=== PATIENT | male | born 2000 | race Caucasian/White ===

== ENCOUNTER 2023-10-27 10:50 | Emergency (ER) | payer BC ==
[~2023-10-27] VITALS: Ht 177.8 cm; Wt 90.7 kg
[2023-10-27 10:56] VITALS: BP 139/82; PULSE 92; RESP 18; TEMP 98.9; O2SAT 98
[2023-10-27] MEDS ORDERED: KETOROLAC 30 MG/ML VIAL IVP ONE (11:45)
[2023-10-27] MEDS ORDERED: DICYCLOMINE HCL LIQUID 10 MG/5 ML UDC PO ONE (11:45)
[2023-10-27] MEDS ORDERED: ONDANSETRON 4 MG/2 ML VIAL IVP ONE (11:45)
[2023-10-27] MEDS ORDERED: NACL 0.9% 1,000 ML IV ONE (11:45)
[2023-10-27 12:04] LABS: BASOPHILS % (AUTO) 0.5 % (0.0-2.0); EOSINOPHILS # (AUTO) 0.2 K/uL (0-0.4); HEMOGLOBIN 18.4 g/dL (12.0-18.0); MONOCYTES # (AUTO) 0.5 K/uL (0.8-1.0); NEUTROPHILS # (AUTO) 3.7 K/uL (1.8-7.7); WHITE BLOOD COUNT (AUTO) 4.9 K/uL (4.8-10.8)
[2023-10-27 12:09] LABS: EOSINOPHILS % (AUTO) 3.1 % (0.0-4.0); HEMATOCRIT 55.2 % (36-52); LYMPHOCYTES # (AUTO) 0.6 K/uL (2.0-11.5); LYMPHOCYTES % (AUTO) 11.6 % (20.5-51.1); MEAN CORPUSCULAR HEMOGLOBIN 31 pg (27-31); MEAN CORPUSCULAR HGB CONC 33 g/dL (33-37); MONOCYTES % (AUTO) 10.5 % (1.7-9.3); NEUTROPHILS % (AUTO) 74.3 % (42.2-75.2); PLATELET COUNT (AUTO) 193 K/uL (140-450); RED CELL DISTRIBUTION WIDTH 13.2 % (11.6-13.7)
[2023-10-27 12:18] LABS: ANION GAP 12.7 (8-16); CARBON DIOXIDE 25.4 mmol/L (21-32); CREATININE 1.3 mg/dL (0.6-1.3); POTASSIUM 3.1 mmol/L (3.5-5.1)
[2023-10-27 12:24] LABS: ALBUMIN 4.4 g/dL (3.4-5.0); BILIRUBIN,DIRECT 0.1 mg/dL (0.0-0.3); TOTAL BILIRUBIN 0.4 mg/dL (0.0-1.0); TOTAL PROTEIN, SERUM 8.7 g/dL (6.4-8.2)
[2023-10-27] MEDS ORDERED: POTASSIUM CHLORIDE 10 MEQ TABER PO ONE (12:35)
[2023-10-27] MEDS ORDERED: ONDA-188 PO (13:39)
[2023-10-27] MEDS ORDERED: DICY10CA2 PO (13:39)
[2023-10-27] MEDS ORDERED: IMO2 PO (13:39)
[2023-10-27 13:57] VITALS: BP 108/54; PULSE 68; RESP 17; O2SAT 98
== END 2023-10-27 13:57 | disposition home or self-care (01) ==
LOC: MED 10:50 → EDBD 10:50 → MED 13:57
DX: A08.4 Viral intestinal infection, unspecified (principal); E87.1 Hypo-osmolality and hyponatremia; E87.6 Hypokalemia; E86.0 Dehydration; R71.8 Other abnormality of red blood cells; Z79.899 Other long term (current) drug therapy
CPT/HCPCS: 36415; 80048; 80076; 81002; 83690; 85025; 96361; 96374; 96375; 99284; J1885; J2405; J7030